=== PATIENT | female | born 2000 | race African-American/Black ===

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

== ENCOUNTER 2020-12-12 19:37 | Emergency (ER) | payer BC ==
[2020-12-12 19:45] VITALS: BMI 17.2
[2020-12-12] MEDS ORDERED: TETANUS AND DIPHTHERIA TOXOID 0.5 ML DISP.SYRIN IM ONE (20:10)
[2020-12-12] MEDS ORDERED: DIPHTH,PERTUSS(ACELL),TET 0.5 ML DISP.SYRIN IM ONE ×2 (20:19→20:41)
[2020-12-12 20:28] VITALS: BP 110/68; PULSE 86; TEMP 98.5
== END 2020-12-12 21:26 | disposition home or self-care (01) ==
LOC: JERFT 19:37
PROC: 3E0234Z Introduction of Serum, Toxoid and Vaccine into Muscle, Percutaneous Approach (ICD-10-PCS; principal; 2020-12-12)
DX: S61.439A Puncture wound without foreign body of unspecified hand, initial encounter (principal)
CPT/HCPCS: 90715; 99284-25

== ENCOUNTER 2022-05-11 07:29 | Emergency (ER) | payer BC, OTHER ==
[2022-05-11 07:41] VITALS: BP 149/92; PULSE 106; RESP 16; BMI 20.4
[2022-05-11 10:48] LABS: HCG,QUALITATIVE URINE Positive
[2022-05-11 10:49] LABS: BASO % 0.3 % (0-2.0); EOS % 0.6 % (0-4.5); HEMOGLOBIN 12.8 GM/dL (10.7-15.3); LYMPH % 18.3 % (8-40); MCH 28.3 pg (25.7-33.7); MCHC 32.8 g/dl (32.0-36.0); MEAN CELL VOLUME 86.4 fl (80-96); MEAN PLT VOLUME 8.9 fl (7.5-11.1); MONO % 6.4 % (3.8-10.2); NEUT % 74.4 % (42.8-82.8); PH,URINE 6.5 (5.0-8.0); PLATELET COUNT 419 10^3/uL (134-434); RBC 4.51 M/mm3 (3.60-5.2); URINE APPEARANCE CLEAR; URINE BILIRUBIN NEGATIVE (NEGATIVE); URINE COLOR YELLOW; URINE GLUCOSE (UA) NEGATIVE (NEGATIVE); URINE KETONE NEGATIVE (NEGATIVE); URINE LEUK ESTERASE NEGATIVE (NEGATIVE); URINE NITRITE NEGATIVE (NEGATIVE); URINE PROTEIN NEGATIVE (NEGATIVE); URINE UROBILINOGEN 0.2 mg/dL (0.2-1.0); WHITE BLOOD COUNT 12.1 K/mm3 (4.0-10.0)
[2022-05-11 11:10] LABS: ALBUMIN 4.1 g/dl (3.4-5.0); CALCIUM 9.3 mg/dL (8.5-10.1)
[2022-05-11 11:12] LABS: BLOOD UREA NITROGEN 6.2 mg/dL (7-18)
[2022-05-11 11:15] LABS: BILIRUBIN,TOTAL 0.8 mg/dL (0.2-1); CREATININE 0.5 mg/dL (0.55-1.3); TOT PROT 7.8 g/dl (6.4-8.2)
== END 2022-05-11 14:34 | disposition home or self-care (01) ==
LOC: JER 07:29
DX: O26.891 Other specified pregnancy related conditions, first trimester (principal); R10.2 Pelvic and perineal pain; Z3A.01 Less than 8 weeks gestation of pregnancy
CPT/HCPCS: 36415; 76817-TC; 80053; 81003; 84702; 84703; 85025; 87086; 99284-25

== ENCOUNTER 2022-07-12 10:38 | Emergency (ER) | payer BC, OTHER ==
[2022-07-12 11:04] VITALS: BP 125/78; PULSE 105; RESP 16; TEMP 99; BMI 20.9
== END 2022-07-12 11:43 | disposition home or self-care (01) ==
LOC: FER 10:38
DX: O9A.212 Injury, poisoning and certain other consequences of external causes complicating pregnancy, second trimester (principal); R10.9 Unspecified abdominal pain; W50.0XXA Accidental hit or strike by another person, initial encounter; Z3A.15 15 weeks gestation of pregnancy
CPT/HCPCS: 81003; 99283-25